=== PATIENT | male | born 1990 | race Caucasian/White ===

== ENCOUNTER 2019-10-08 18:36 | Emergency (ER) | payer BC ==
[~2019-10-08] VITALS: Ht 195.6 cm; Wt 115.7 kg
[2019-10-08] MEDS ORDERED: CYCL10 PO (20:18)
[2019-10-08] MEDS ORDERED: IBUP600 PO (20:18)
== END 2019-10-08 20:35 | disposition home or self-care (01) ==
LOC: ER 18:36
DX: M54.42 Lumbago with sciatica, left side (principal)
CPT/HCPCS: 96372; 99283-25; J1100; J1885